=== PATIENT | female | born 1950 | race Caucasian/White ===

== ENCOUNTER → 2018-06-17 | Outpatient (CLI) | payer OTHER ==
[~2018-06-17] VITALS: Ht 167.6 cm; Wt 74.8 kg
[~2018-06-17] MED LIST: ALDACTONE50 MG PO; BIOTIN1000 MCG PO; FINACEA50 GM TOP; FISH OIL 1,001000 M2 PO; LOSARTAN POTASS50 MG PO; MULTIVITAMINS1 EAC7 PO; OMEPRAZOLE 20 M20 M1 PO; RESTASIS1 EACH OPHTHALMIC; VITAMIN B-12500 MCG PO; VITAMIN D1000 UNI1 PO; ZANTAC 150MG T150 MG PO
--- NOTE | ~2018-06-17 | P ---
[facility] [place] [address] [place] [address] PROCEDURE REPORT Name: EDU HANEY Room #: REG [facility].#: [id number] Admission: 06/17/18 Attend Phys: Jaguar Laboy MD Discharge: Date of : 52 Report #: [id number] THIS REPORT FOR: //name// CC: Charlotte Laboy DATE OF SERVICE: 06/17/2018 BRIEF HISTORY: The patient is a 67-year-old woman with recent change in bowel habits. POSTOPERATIVE DIAGNOSIS: Mild left-sided diverticulosis coli. MEDICATIONS: Deep sedation with propofol per Anesthesia. SPECIMENS: 1. Random biopsies of proximal colon, rule out colitis. 2. Random biopsies of distal colon, rule out colitis. ESTIMATED BLOOD LOSS: 3 mL. PROCEDURE: Colonoscopy to cecum and terminal ileum with biopsy. FINDINGS: Prior to propofol sedation, procedure of colonoscopy discussed with the patient as well as potential risks and its complications. She indicates she understands and desires to proceed. DESCRIPTION OF PROCEDURE: With the patient in left lateral decubitus position, digital examination was completed, which revealed no abnormalities. Subsequently, the Olympus video colonoscope was introduced in the rectum, advanced under direct vision into the cecum. Done with minimal difficulty. The cecum was identified by the ileocecal valve and the appendiceal orifice. I was able to visualize the distal segment of the terminal ileum, which was inspected and noted to be unremarkable. At that point, the scope was slowly withdrawn and careful circumferential views were obtained. Upon slow withdrawal of the scope, the prep was noted to be excellent. The mucosa was within normal limits, normal vascular pattern, normal light reflex. No neoplastic lesions were seen on this examination. As far as the diarrhea, no inflammatory changes were seen. However, multiple biopsies were obtained to evaluate for microscopic colitis. As we withdrew the scope, she was noted to have mild diverticular disease of the left colon without endoscopic evidence of diverticulitis. Scope was withdrawn in the rectum and no abnormalities were seen. Upon retroflexion, no abnormalities were seen. Scope was withdrawn. The patient tolerated the procedure well. [address] [address] PROCEDURE REPORT Name: EDU HANEY Room #: REG [facility]#: [id number] Admission: 06/17/18 Attend Phys: Jaguar Laboy MD Discharge: Date of : 52 Report #: [id number] CONDITION OF THE PATIENT UPON DISCHARGE: Following the procedure, the patient drowsy, arousable and conversant and will be discharged home when fully ambulatory. INSTRUCTIONS TO THE PATIENT AND FAMILY AT THE TIME OF DISCHARGE: No neoplastic lesions were seen. For surveillance purposes, she is to return in 10 years for colonoscopy. As far as her change in bowel habits with loose and watery stools, the mucosa is normal. There is no evidence of disease in the distal terminal ileum. We will follow up on biopsies, especially in regards to possibly microscopic colitis. She reports a diagnosis of irritable bowel syndrome. If symptoms persist, treatment for irritable bowel syndrome and potentially antibiotics may be reasonable. If symptoms persist, she will return for followup in the office. Last colonoscopy was about 7 years ago. Withdrawal time from cecum was 9 minutes 23 seconds. By: [id number] Jaguar Laboy MD /nt
--- NOTE | ~2018-06-17 | P ---
[facility] [place] [address] [place] [address] PROCEDURE REPORT Name: EDU HANEY Room #: REG [facility]#: [id number] Admission: 06/17/18 Attend Phys: Jaguar Laboy MD Discharge: Date of : 52 Report #: [id number] THIS REPORT FOR: //name// CC: CECY Laboy BRIEF HISTORY: The patient is a 67-year-old woman with history of reflux disease and she has been on PPI for a long period of time. She now has intermittent solid food dysphagia. Also, she reports that her reflux is not always well controlled. PREOPERATIVE DIAGNOSIS: 1. Reflux symptoms. 2. Diarrhea. 3. Dysphagia. POSTOPERATIVE DIAGNOSES: 1. Moderate diffuse gastritis. 2. Moderately large 5-6 cm hiatus hernia. 3. Tortuous distal esophagus. MEDICATIONS: Deep sedation with propofol per anesthesia. SPECIMENS: 1. Small bowel biopsies to rule out celiac disease. 2. Gastric biopsies to rule out H. pylori. MEDICATION: Deep sedation with propofol per Anesthesia. ESTIMATED BLOOD LOSS: 3 mL. PROCEDURE: EGD with biopsy and Ruiz dilation. FINDINGS: Prior to propofol sedation, procedure of upper endoscopy was discussed with the patient, all potential risks and its complications. She indicates she understands and desires to proceed. DESCRIPTION OF PROCEDURE: With the patient in left decubitus position, the Olympus video endoscope was inserted in the cervical esophagus under direct vision without difficulty. Examination of this organ through its entire length revealed normal esophageal mucosa down the squamocolumnar junction. Squamocolumnar junction was intact. No ulcers or erosions were seen. A definite stricture or ring was not seen. However, she has a tortuous distal esophagus, likely result of her hiatus hernia. The scope was advanced in the hiatus hernia and it was noted to be about 5-6 cm in greatest length. There were no ulcers or erosions. Upon retroflexion, the squamocolumnar junction was [facility] [address] [place] [address] PROCEDURE REPORT Name: EDU HANEY Room #: REG [facility].#: [id number] Admission: 06/17/18 Attend Phys: Jaguar Laboy MD Discharge: Date of : 52 Report #: [id number] normal. The scope was advanced fully into the stomach, was examined on end view as well as retroflexed views. 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 They had a typical appearance and were not removed. The mucosa in the proximal stomach was intact. However, there were some long striated areas extending from the distal aspect of the hiatus hernia, but no definite ulcers. Examination of distal stomach revealed a moderate gastritis with a few scattered erosions, biopsies obtained. The pylorus, duodenal bulb and postbulbar duodenal sweep were inspected and noted to be unremarkable. Due to her diarrhea, biopsies were obtained to evaluate for celiac disease. At that point, scope was slowly withdrawn and careful circumferential views confirmed the above findings. The patient tolerated the procedure well. Subsequently, she was dilated with passage of 50-Beninese Ruiz dilator without resistance. CONDITION OF THE PATIENT UPON DISCHARGE: Following procedure, the patient drowsy prepared for colonoscopy. INSTRUCTIONS TO THE PATIENT AND FAMILY AT THE TIME OF DISCHARGE: We will have her increase her omeprazole to 40 mg twice daily. She is to return for dilation on an as needed basis. If symptoms cannot be controlled, repair of hiatus hernia and antireflux procedure may be a consideration. She has had some radiation of pain in her back and consider further evaluation with an ultrasound of the gallbladder, although she thinks she has had one before. As for the diarrhea, we will follow up on biopsies and proceed with colonoscopy. By: [id number] Jaguar Laboy MD /blanka
--- NOTE | ~2018-06-17 | PATH ---
[facility] [place] [address] PATHOLOGY RPT PROCEDURE Name: EDU HANEY Room #: REG [facility] Sonam.#: [id number] Admission: 06/17/18 Date of : 52 Discharge: Report #: [id number] Path Case #: [id number] [facility] Accession Number: [id number] . 01 Material submitted: . PART A: BX OF SMALL BOWEL R/O CELIAC DX RE: DIARRHEA PART B: BX OF GASTRITIS R/O H. PYLORI PART C: RANDOM BX OF PROX COLON R/O MICROSCOPIC COLITIS PART D: RANDOM BX OF DISTAL COLON R/O MICROSCOPIC COLITIS . 01 Clinical history: . Pre-OP DX: Diarrhea Post-OP DX: Diverticulosis, gastritis, hiatal hernia . 02 Diagnosis: A. Small bowel mucosa, duodenum, rule out celiac disease, endoscopic biopsy: - No diagnostic abnormalities present. - Negative for villous blunting or increase in intraepithelial lymphocytes. . B. Gastric mucosa, gastritis, rule out H. pylori, endoscopic biopsy: - Mild reactive gastropathy. - Negative for intestinal metaplasia or atrophy. - Negative for Helicobacter pylori (properly controlled immunohistochemical stain performed). . C. Large intestine, proximal colon random, endoscopic biopsy: - No significant diagnostic abnormalities identified. . D. Large intestine mucosa, random distal colon, endoscopic biopsy: - No significant diagnostic abnormalities identified. . (IUV:senior loan officer; 06/18/2018) MBR/06/18/2018 . 02 Comment: Sections of colon biopsy tissues show crypts at regular intervals and no increase in cellularity of lamina propria. There are no granulomas. The collagen layer underneath the epithelium is not thickened. There is no distortion in crypt architecture as well. There is no evidence of dysplasia. . (IUV:senior loan officer; 06/18/2018) . 02 Electronically signed: . Nishi Wilson MD, [place] [address] PATHOLOGY RPT PROCEDURE Name: EDU HANEY J Room #: REG [facility]ia [facility]ivens#: [id number] Admission: 06/17/18 Date of : 52 Discharge: Report #: [id number] Path Case #: [id number] NPI- [id number] . 01 Gross description: . A. Received in formalin labeled "Edu Haney, BX of small bowel, rule out celiac, re diarrhea," are 5 segments of stacy soft tissue measuring 1.5 x 0.7 x 0.3 cm in aggregate dimensions and ranging from 0.2 to 0.4 cm in maximum dimension. The specimen is submitted entirely in cassette A1. . B. Received in formalin labeled "Edu Haney, BX of gastritis, rule out H. pylori," are multiple segments of stacy soft tissue measuring 1.5 x 0.3 x 0.1 cm in aggregate dimensions. The specimen is filtered and entirely submitted in cassette B1. . C. Received in formalin labeled "Edu Haney, random proximal colon BX, rule out microscopic colitis," are multiple segments of stacy soft tissue measuring 1.7 x 0.5 x 0.1 cm in aggregate dimensions. The specimen is filtered and entirely submitted in cassette C1. . D. Received in formalin labeled "Edu Haney, random BX of distal colon, rule out microscopic colitis," are multiple segments of stacy soft tissue measuring 1.8 x 0.4 x 0.1 cm in aggregate dimensions. The specimen is filtered and entirely submitted in cassette D1. (TSD; 06/17/2018) TOB/TOB . 02 Pathologist provided ICD-10: K31.9, R19.7 . 02 CPT . 138734, 756405, 181288, 933012, [id number] Specimen Comment: A courtesy copy of this report has been sent to Specimen Comment: [phone], . Specimen Comment: Report sent to / DR MCMAHON Performed at: [address], [place], [place] [id number] MD Al Romero MD Phone: [phone] Performed at: [address] [id number] MD Nishi Wilson MD Phone: [phone]
== END | disposition home or self-care (01) ==
LOC: GI 08:04
DX: K57.30 Diverticulosis of large intestine without perforation or abscess without bleeding (principal); K31.9 Disease of stomach and duodenum, unspecified; K44.9 Diaphragmatic hernia without obstruction or gangrene; K22.8 Other specified diseases of esophagus; K31.7 Polyp of stomach and duodenum; K21.9 Gastro-esophageal reflux disease without esophagitis; I10 Essential (primary) hypertension; Z88.8 Allergy status to other drugs, medicaments and biological substances; Z79.899 Other long term (current) drug therapy; Z87.891 Personal history of nicotine dependence; Z98.890 Other specified postprocedural states
CPT/HCPCS: 62110; 62900